=== PATIENT | male | born 1980 | race Caucasian/White ===

== ENCOUNTER 2018-06-05 21:47 | Emergency (ER) | payer SELFPAY ==
[~2018-06-05] VITALS: Ht 185.4 cm; Wt 81.6 kg
[2018-06-05 21:47] VITALS: BP 132/80
[2018-06-05] MEDS ORDERED: SULF1TAB24 PO (22:23)
[2018-06-05] MEDS ORDERED: INDO25CA5 PO (22:23)
--- NOTE | 2018-06-05 22:41 | ED.ADGEN ---
Past History Past Medical History: Diabetes Alcohol Use: None Drug Use: Other Social History Narrative: states drugs but has not used for six weeks Adult General Chief Complaint Chief Complaint hand problem HPI HPI 38 years old male presented to the emergency department with multiple spots on his right and left hand reds tender to touch swollen no fever no chills no urgency no frequency no hematuria no trauma Review of Systems Review of Systems Constitutional: Denies fever or chills [] Eyes: Denies change in visual acuity, redness, or eye pain [] HENT: Denies nasal congestion or sore throat [] Respiratory: Denies cough or shortness of breath [] Cardiovascular: No additional information not addressed in HPI [] GI: Denies abdominal pain, nausea, vomiting, bloody stools or diarrhea [] : Denies dysuria or hematuria [] Musculoskeletal: Denies back pain or joint pain [] Integument: Multiple red swollen tender spots Neurologic: Denies headache, focal weakness or sensory changes [] Endocrine: Denies polyuria or polydipsia [] All other systems were reviewed and found to be within normal limits, except as documented in this note. Allergies Allergies Allergies Coded Allergies Type Severity Reaction Last Updated Verified No Known Drug Allergies 06/05/18 No Physical Exam Physical Exam Constitutional: Well developed, well nourished, no acute distress, non-toxic appearance. [] HENT: Normocephalic, atraumatic, bilateral external ears normal, oropharynx moist, no oral exudates, nose normal. [] Eyes: PERRLA, EOMI, conjunctiva normal, no discharge. [] Neck: Normal range of motion, no tenderness, supple, no stridor. [] Cardiovascular:Heart rate regular rhythm, no murmur [] Lungs & Thorax: Bilateral breath sounds clear to auscultation [] Abdomen: Bowel sounds normal, soft, no tenderness, no masses, no pulsatile masses. [] Skin ; cellulitis in both hands bilaterally Back: No tenderness, no CVA tenderness. [] Extremities: No tenderness, no cyanosis, no clubbing, ROM intact, no edema. [] Neurologic: Alert and oriented X 3, normal motor function, normal sensory function, no focal deficits noted. [] Psychologic: Affect normal, judgement normal, mood normal. [] Current Patient Data Vital Signs Vital Signs Date Time Temp Pulse Resp B/P (MAP) Pulse Ox O2 Delivery O2 Flow Rate FiO2 06/05/18 21:47 99.3 113 20 97 Room Air EKG EKG [] Radiology/Procedures Radiology/Procedures [] Course & Med Decision Making Course & Med Decision Making Pertinent Labs and Imaging studies reviewed. (See chart for details) [] Final Impression Final Impression [] Problems: (1) Cellulitis Qualifiers: Qualified Codes: L03.119 - Cellulitis of unspecified part of limb Dragon Disclaimer Dragon Disclaimer This electronic medical record was generated, in whole or in part, using a voice recognition dictation system. KI SELF MD Jun 05, 2018 22:41
== END 2018-06-05 22:43 | disposition home or self-care (01) ==
LOC: ER 21:47
DX: L03.114 Cellulitis of left upper limb (principal); L03.113 Cellulitis of right upper limb; E11.9 Type 2 diabetes mellitus without complications
CPT/HCPCS: 99283